=== PATIENT | female | born 1970 | race Two or more races ===

== ENCOUNTER 2022-10-30 20:57 | Emergency (ER) | payer OTHER ==
[~2022-10-30] VITALS: Ht 162.6 cm; Wt 90.7 kg
[~2022-10-30 20:57] MED LIST: PROTONIX40 MG PO; ZOFRAN4 MG PO
[2022-10-30] MEDS ORDERED: ARMOUR THYROID90 MG (21:13)
[2022-10-31] MEDS ORDERED: LEVSIN/SL0.125 MG SL (03:02)
[2022-10-31] MEDS ORDERED: PEPCID40 MG PO (03:02)
[2022-10-31] MEDS ORDERED: INTESTINEX680 M1 PO (03:02)
[2022-10-31] MEDS ORDERED: ONDANSETRON ODT4 MG PO (03:02)
[2022-10-31] MEDS ORDERED: DOLOGESIC 500-1 EACH PO (03:03)
== END 2022-10-31 03:13 ==
LOC: ER 20:57
DX: K29.70 Gastritis, unspecified, without bleeding (principal); E03.9 Hypothyroidism, unspecified